=== PATIENT | male | born 1985 | race Caucasian/White ===

== ENCOUNTER 2020-02-01 20:46 | Observation (INO) | payer OTHER ==
[2020-02-01] MEDS ORDERED: DIPH,PERTUS(ACELL)TETVAC-LF 0.5 ML VIAL IM ONE (21:02)
[2020-02-01] MEDS ORDERED: HYDROmorphone 0.5 MG/0.5 ML SYRINGE IVP STA (21:02)
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
--- NOTE | 2020-02-01 21:48 | XR ---
EXAMINATION TYPE: XR shoulder limited LT DATE OF EXAM: 02/01/2020 COMPARISON: NONE HISTORY: Shoulder pain TECHNIQUE: 2 views FINDINGS: I see no fracture nor dislocation. Glenohumeral joint is intact. There are no pathologic ca lcifications. IMPRESSION: Negative left shoulder exam.
[2020-02-01 21:51] LABS: Basophils # (A) 0.2 k/uL (0-0.2); Basophils % (A) 1 %; Eosinophils # (A) 0.9 k/uL (0-0.7); Eosinophils % (A) 6 %; HCT 49.1 % (39.0-53.0); Lymphocytes % (A) 23 %; MCH 32.3 pg (25.0-35.0); MCHC 32.6 g/dL (31.0-37.0); Monocytes # (A) 0.6 k/uL (0-1.0); Monocytes % (A) 4 %; Neutrophils # (A) 8.5 k/uL (1.3-7.7); Neutrophils % (A) 64 %; Platelet Count 288 k/uL (150-450); RBC 4.96 m/uL (4.30-5.90); RDW 12.2 % (11.5-15.5); WBC 13.3 k/uL (3.8-10.6)
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
[2020-02-01 22:10] LABS: INR 0.9 (<1.2); Partial Thromboplastin Time 24.2 sec (22.0-30.0); Prothrombin Time 9.4 sec (9.0-12.0)
[2020-02-01 22:11] LABS: ALT 79 U/L (4-49); AST 38 U/L (17-59); African American GFR (CKD) >90 (>60 ml/min/1.73 sqM); Albumin 5.1 g/dL (3.5-5.0); Alkaline Phosphatase 75 U/L (38-126); Anion Gap 12 mmol/L; Blood Urea Nitrogen 14 mg/dL (9-20); Calcium 9.7 mg/dL (8.4-10.2); Carbon Dioxide 20 mmol/L (22-30); Chloride 111 mmol/L (98-107); Glucose 109 mg/dL (74-99); Non-African American GFR(CKD) >90 (>60 ml/min/1.73 sqM); Potassium 4.7 mmol/L (3.5-5.1); Sodium 143 mmol/L (137-145); Total Bilirubin 0.2 mg/dL (0.2-1.3); Total Protein 8.6 g/dL (6.3-8.2)
[2020-02-01 22:16] LABS: Alcohol 242 mg/dL
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
[2020-02-01] MEDS ORDERED: NALOXONE 0.4 MG/ML 1 ML VIAL IV PRN (22:39)
[2020-02-01] MEDS ORDERED: traMADol 50 MG TAB PO PRN (22:39)
[2020-02-01] MEDS ORDERED: HYDROmorphone 0.5 MG/0.5 ML SYRINGE IVP PRN (22:39)
[2020-02-01 22:45] LABS: Appearance,Urine Clear (Clear); Bilirubin,Urine Negative (Negative); Blood,Urine Small (Negative); Color,Urine Colorless; Glucose,Urine (UA) Negative (Negative); Hyaline Casts,Urine 3 /lpf (0-2); Ketones,Urine Negative (Negative); Leukocyte Esterase,Urine Negative (Negative); Mucus,Urine Rare /hpf; Nitrite,Urine Negative (Negative); Protein,Urine Negative (Negative); RBC,Urine <1 /hpf (0-5); Specific Gravity,Urine 1.017 (1.001-1.035); Urobilinogen,Urine <2.0 mg/dL (<2.0); WBC,Urine 1 /hpf (0-5)
[2020-02-01 22:49] LABS: Amphetamine Screen,Urine Not Detected (NotDetected); Barbiturate Screen,Urine Not Detected (NotDetected); Benzodiazepines Screen,Urine Not Detected (NotDetected); Cocaine Screen,Urine Not Detected (NotDetected); Methadone Screen, Urine Not Detected (NotDetected); Opiate Screen,Urine Not Detected (NotDetected); Oxycodone Screen, Urine Not Detected (NotDetected); Phencyclidine Screen,Urine Not Detected (NotDetected); Tricyclic Antidepressant,Urine Not Detected (NotDetected); Urn Cannabinoid Scrn Detected (NotDetected)
[2020-02-01] MEDS: SODIUM CHLORIDE 0.9% 1,000 ML IV SCH (22:54)
[2020-02-02] MEDS: SODIUM CHLORIDE 0.9% 1,000 ML IV SCH (09:02)
[2020-02-02 09:20] LABS: Basophils % (A) 0 %; Eosinophils # (A) 0.5 k/uL (0-0.7); Eosinophils % (A) 3 %; HCT 48.5 % (39.0-53.0); HGB 15.6 gm/dL (13.0-17.5); Lymphocytes % (A) 18 %; MCH 32.1 pg (25.0-35.0); MCHC 32.2 g/dL (31.0-37.0); MCV 99.6 fL (80.0-100.0); Mean Platelet Volume 7.8; Monocytes # (A) 0.9 k/uL (0-1.0); Monocytes % (A) 5 %; Neutrophils # (A) 12.1 k/uL (1.3-7.7); Neutrophils % (A) 72 %; Platelet Count 286 k/uL (150-450); RBC 4.87 m/uL (4.30-5.90); RDW 12.9 % (11.5-15.5); WBC 16.8 k/uL (3.8-10.6)
[2020-02-02 09:39] LABS: ALT 66 U/L (4-49); AST 31 U/L (17-59); African American GFR (CKD) >90 (>60 ml/min/1.73 sqM); Albumin 4.8 g/dL (3.5-5.0); Alkaline Phosphatase 81 U/L (38-126); Anion Gap 7 mmol/L; Blood Urea Nitrogen 9 mg/dL (9-20); Calcium 9.7 mg/dL (8.4-10.2); Carbon Dioxide 21 mmol/L (22-30); Chloride 110 mmol/L (98-107); Glucose 114 mg/dL (74-99); Non-African American GFR(CKD) >90 (>60 ml/min/1.73 sqM); Potassium 4.7 mmol/L (3.5-5.1); Sodium 138 mmol/L (137-145); Total Bilirubin 0.8 mg/dL (0.2-1.3); Total Protein 7.9 g/dL (6.3-8.2)
[2020-02-02 10:37] VITALS: BP 143/81; PULSE 67; RESP 16; TEMP 97.7
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
== END 2020-02-02 15:16 | disposition home or self-care (01) ==
LOC: EC 20:46 → 1SOBS 22:41
PROVIDERS: ADMIT Surgery; ATTEND Surgery
DX: F10.129 Alcohol abuse with intoxication, unspecified (principal); Y90.8 Blood alcohol level of 240 mg/100 ml or more; M25.512 Pain in left shoulder; V89.2XXA Person injured in unspecified motor-vehicle accident, traffic, initial encounter; Y92.410 Unspecified street and highway as the place of occurrence of the external cause; D72.829 Elevated white blood cell count, unspecified; J98.11 Atelectasis; J45.909 Unspecified asthma, uncomplicated; F17.200 Nicotine dependence, unspecified, uncomplicated
CPT/HCPCS: 90471; 96374; 99285; 36415; 93005; 86900; 86901; 80053 ×2; 85025 ×2; 85610; 85730; 86850; 81001; 80306; 80320; 73020; 72125; 70450; 71260; 74177; 90715; G0378 ×2; J1170; Q9967

== ENCOUNTER 2020-07-17 01:45 | Emergency (ER) | payer OTHER ==
[2020-07-17] MEDS ORDERED: KETOROLAC 15 MG/ML 1 ML VIAL IVP STA (01:59)
[2020-07-17] MEDS ORDERED: ONDANSETRON 4 MG/2 ML VIAL IVP STA (01:59)
[2020-07-17] MEDS ORDERED: SODIUM CHLORIDE 0.9% 1,000 ML IV STA (01:59)
--- NOTE | 2020-07-17 02:07 | ED ---
General Adult HPI - General Chief complaint: Abdominal Pain Stated complaint: RT flank pain Time Seen by Provider: 07/17/20 01:55 Source: patient, family, RN notes reviewed Mode of arrival: ambulatory Limitations: no limitations - History of Present Illness Initial comments: 34-year-old male patient presents to the emergency room with significant other complaining of right-sided flank pain that started around midnight tonight. Family member states patient does not like to come to the hospital and is in a lot of discomfort is not willing to talk. She states that patient did have pink tinged urine yesterday and some back pain but the pain became significantly worse and patient is now unable to get comfortable. Patient is nauseated but no vomiting. Patient complains of chills but no fever. Patient denies testicular pain. Patient on his hands and knees on the cart trying to get comfortable. Patient did have a Czech spaghetti for dinner tonight states is passing gas. Family states only medical history is asthma, no history of kidney stones. -: days(s) (1) Location: back, right Radiation: flank Severity scale (1-10): 8 Quality: sharp, constant Improves with: none Associated Symptoms: nausea/vomiting (No vomiting) - Related Data Previous Rx's Medication Instructions Recorded Acetaminophen Tab [Tylenol Tab] 650 mg PO Q4H PRN #30 tablet 02/02/20 Ibuprofen [Motrin] 600 mg PO Q8HR PRN #30 tab 02/02/20 Ibuprofen [Motrin] 600 mg PO Q8HR PRN #30 tab 07/17/20 Tamsulosin [Flomax] 0.4 mg PO DAILY #7 cap 07/17/20 Allergies Allergy/AdvReac Type Severity Reaction Status Date / Time No Known Allergies Allergy Unverified 07/17/20 01:49 Review of Systems ROS Statement: Those systems with pertinent positive or pertinent negative responses have been documented in the HPI. ROS Other: All systems not noted in ROS Statement are negative. Past Medical History Past Medical History: Asthma History of Any Multi-Drug Resistant Organisms: None Reported Past Surgical History: No Surgical Hx Reported Past Anesthesia/Blood Transfusion Reactions: No Reported Reaction Past Psychological History: No Psychological Hx Reported Smoking Status: Current every day smoker Past Alcohol Use History: Heavy Past Drug Use History: Marijuana General Exam Limitations: no limitations General appearance: alert, in distress (Due to pain) Head exam: Present: atraumatic, normocephalic, normal inspection Eye exam: Present: normal appearance, PERRL, EOMI. Absent: scleral icterus, conjunctival injection, periorbital swelling ENT exam: Present: normal exam, normal oropharynx, mucous membranes moist Neck exam: Present: normal inspection, full ROM. Absent: tenderness, meningismus, lymphadenopathy, thyromegaly Respiratory exam: Present: normal lung sounds bilaterally. Absent: respiratory distress, wheezes, rales, rhonchi, stridor, chest wall tenderness, accessory muscle use, decreased breath sounds Cardiovascular Exam: Present: bradycardia GI/Abdominal exam: Present: soft, normal bowel sounds. Absent: distended, tenderness, guarding, rebound, rigid, mass, bruit, hernia Rectal exam: Present: deferred Extremities exam: Present: normal inspection, full ROM, normal capillary refill. Absent: tenderness, pedal edema, joint swelling, calf tenderness Back exam: Present: normal inspection, full ROM, tenderness, CVA tenderness (R). Absent: CVA tenderness (L), paraspinal tenderness, vertebral tenderness, rash noted Neurological exam: Present: alert, oriented X3, normal gait Psychiatric exam: Present: normal affect, normal mood Skin exam: Present: warm, dry, intact, normal color. Absent: rash, cyanosis, erythema, urticaria, pallor, mottled Course Vital Signs 07/17/20 07/17/20 01:45 03:00 Temperature 97.8 F Pulse Rate 48 L 44 L Respiratory 20 18 Rate Blood Pressure 173/73 157/89 O2 Sat by Pulse 99 100 Oximetry - Reevaluation(s) Reevaluation #1: 07/17/20 03:09 Patient states pain is down to a 5 from an 8 and has migrated from his right flank to his right groin. Appears more comfortable laying on the bed supine. Still awaiting urine sample. 07/17/20 03:18 Time: 03:09 Medical Decision Making - Medical Decision Making Patient states he is passing gas and does feel a little bit better after IV fluids and Toradol. WBC count of 16.3 with neutrophils of 8.3 and lymphocytes of 5.3. Patient's WBC count 16.8 in January 2020. Lactic acid is 1.3 . KUB x- ray shows a large amount of gas on the right, , moderate stool, no obstruction, no pneumoperitoneum. UA shows moderate amount of blood this is likely related to a kidney stone that the patient is past. Patient states feels much better and the pain is no longer in his back. patient is receptive to being discharged home on Flomax increasing fluids and following up with primary care doctor. Case discussed with Dr. Strickland. - Lab Data Result diagrams: 07/17/20 00:11 07/17/20 00:11 Lab Results 07/17/20 07/17/20 07/17/20 Range/Units 00:11 00:11 00:11 WBC 16.3 H (3.8-10.6) k/uL RBC 4.90 (4.30-5.90) m/uL Hgb 16.0 (13.0-17.5) gm/dL Hct 46.8 (39.0-53.0) % MCV 95.5 (80.0-100.0) fL MCH 32.7 (25.0-35.0) pg MCHC 34.2 (31.0-37.0) g/dL RDW 12.0 (11.5-15.5) % Plt Count 245 (150-450) k/uL MPV 7.1 Neutrophils % 51 % Lymphocytes % 32 % Monocytes % 5 % Eosinophils % 9 % Basophils % 1 % Neutrophils # 8.3 H (1.3-7.7) k/uL Lymphocytes # 5.3 H (1.0-4.8) k/uL Monocytes # 0.8 (0-1.0) k/uL Eosinophils # 1.5 H (0-0.7) k/uL Basophils # 0.1 (0-0.2) k/uL Sodium 137 (137-145) mmol/L Potassium 4.5 (3.5-5.1) mmol/L Chloride 103 (98-107) mmol/L Carbon Dioxide 26 (22-30) mmol/L Anion Gap 8 mmol/L BUN 27 H (9-20) mg/dL Creatinine 1.03 (0.66-1.25) mg/dL Est GFR (CKD-EPI)AfAm >90 (>60 ml/min/1.73 sqM) Est GFR (CKD-EPI)NonAf >90 (>60 ml/min/1.73 sqM) Glucose 130 H (74-99) mg/dL Plasma Lactic Acid Ayan 1.3 (0.7-2.0) mmol/L Calcium 9.4 (8.4-10.2) mg/dL Total Bilirubin 0.1 L (0.2-1.3) mg/dL AST 37 (17-59) U/L ALT 33 (4-49) U/L Alkaline Phosphatase 83 (38-126) U/L Total Protein 6.9 (6.3-8.2) g/dL Albumin 4.3 (3.5-5.0) g/dL Amylase 82 (30-110) U/L Lipase 107 (23-300) U/L Urine Color Urine Appearance (Clear) Urine pH (5.0-8.0) Ur Specific Kimberly (1.001-1.035) Urine Protein (Negative) Urine Glucose (UA) (Negative) Urine Ketones (Negative) Urine Blood (Negative) Urine Nitrite (Negative) Urine Bilirubin (Negative) Urine Urobilinogen (<2.0) mg/dL Ur Leukocyte Esterase (Negative) Urine RBC (0-5) /hpf Urine WBC (0-5) /hpf Amorphous Sediment (None) /hpf 07/17/20 Range/Units 02:25 WBC (3.8-10.6) k/uL RBC (4.30-5.90) m/uL Hgb (13.0-17.5) gm/dL Hct (39.0-53.0) % MCV (80.0-100.0) fL MCH (25.0-35.0) pg MCHC (31.0-37.0) g/dL RDW (11.5-15.5) % Plt Count (150-450) k/uL MPV Neutrophils % % Lymphocytes % % Monocytes % % Eosinophils % % Basophils % % Neutrophils # (1.3-7.7) k/uL Lymphocytes # (1.0-4.8) k/uL Monocytes # (0-1.0) k/uL Eosinophils # (0-0.7) k/uL Basophils # (0-0.2) k/uL Sodium (137-145) mmol/L Potassium (3.5-5.1) mmol/L Chloride (98-107) mmol/L Carbon Dioxide (22-30) mmol/L Anion Gap mmol/L BUN (9-20) mg/dL Creatinine (0.66-1.25) mg/dL Est GFR (CKD-EPI)AfAm (>60 ml/min/1.73 sqM) Est GFR (CKD-EPI)NonAf (>60 ml/min/1.73 sqM) Glucose (74-99) mg/dL Plasma Lactic Acid Ayan (0.7-2.0) mmol/L Calcium (8.4-10.2) mg/dL Total Bilirubin (0.2-1.3) mg/dL AST (17-59) U/L ALT (4-49) U/L Alkaline Phosphatase (38-126) U/L Total Protein (6.3-8.2) g/dL Albumin (3.5-5.0) g/dL Amylase (30-110) U/L Lipase (23-300) U/L Urine Color Yellow Urine Appearance Cloudy (Clear) Urine pH 6.5 (5.0-8.0) Ur Specific Kimberly 1.026 (1.001-1.035) Urine Protein Trace H (Negative) Urine Glucose (UA) Negative (Negative) Urine Ketones Negative (Negative) Urine Blood Moderate H (Negative) Urine Nitrite Negative (Negative) Urine Bilirubin Negative (Negative) Urine Urobilinogen 2.0 (<2.0) mg/dL Ur Leukocyte Esterase Trace H (Negative) Urine RBC 103 H (0-5) /hpf Urine WBC 9 H (0-5) /hpf Amorphous Sediment Rare H (None) /hpf Disposition Clinical Impression: Abdominal pain in male, Kidney stone on right side Disposition: HOME SELF-CARE Condition: Good Instructions (If sedation given, give patient instructions): Abdominal Pain (ED), Kidney Stones (ED) Additional Instructions: Take medication as prescribed, use Motrin for pain increase your fluid intake. Return if increasing back pain, inability to urinate or fever. Follow-up with the primary care doctor in 1 week. Prescriptions: Tamsulosin [Flomax] 0.4 mg PO DAILY #7 cap Ibuprofen [Motrin] 600 mg PO Q8HR PRN #30 tab PRN Reason: Pain Is patient prescribed a controlled substance at d/c from ED?: No Referrals: None,Stated [Primary Care Provider] - 1-2 days Time of Disposition: 04:43
[2020-07-17 02:28] LABS: Basophils # (A) 0.1 k/uL (0-0.2); Basophils % (A) 1 %; Eosinophils # (A) 1.5 k/uL (0-0.7); Eosinophils % (A) 9 %; HCT 46.8 % (39.0-53.0); Lymphocytes # (A) 5.3 k/uL (1.0-4.8); Lymphocytes % (A) 32 %; MCH 32.7 pg (25.0-35.0); MCHC 34.2 g/dL (31.0-37.0); MCV 95.5 fL (80.0-100.0); Mean Platelet Volume 7.1; Monocytes # (A) 0.8 k/uL (0-1.0); Monocytes % (A) 5 %; Neutrophils # (A) 8.3 k/uL (1.3-7.7); Neutrophils % (A) 51 %; Platelet Count 245 k/uL (150-450); WBC 16.3 k/uL (3.8-10.6)
[2020-07-17 02:38] LABS: ALT 33 U/L (4-49); AST 37 U/L (17-59); African American GFR (CKD) >90 (>60 ml/min/1.73 sqM); Albumin 4.3 g/dL (3.5-5.0); Alkaline Phosphatase 83 U/L (38-126); Amylase 82 U/L (30-110); Anion Gap 8 mmol/L; Blood Urea Nitrogen 27 mg/dL (9-20); Calcium 9.4 mg/dL (8.4-10.2); Carbon Dioxide 26 mmol/L (22-30); Chloride 103 mmol/L (98-107); Glucose 130 mg/dL (74-99); Lipase 107 U/L (23-300); Non-African American GFR(CKD) >90 (>60 ml/min/1.73 sqM); Potassium 4.5 mmol/L (3.5-5.1); Sodium 137 mmol/L (137-145); Total Bilirubin 0.1 mg/dL (0.2-1.3); Total Protein 6.9 g/dL (6.3-8.2)
--- NOTE | 2020-07-17 03:00 | XR ---
EXAM: XR Abdomen, 1 View CLINICAL HISTORY: ITS.REASON XR Reason: abdominal pain TECHNIQUE: Frontal upright view of the abdomen/pelvis. COMPARISON: No relevant prior studies available. FINDINGS: Intraperitoneal space: No pneumoperitoneum. Gastrointestinal tract: Prominent small bowel gas pattern in the right abdomen without air-fluid levels. Mild gas in the ascending colon. Mild to moderate stool burden in the central pelvis and the presumed distal rectosigmoid region. Bones/joints: Unremarkable. IMPRESSION: Prominent small bowel gas pattern in the right abdomen is nonspecific and presumed enteritis. No dilation or air-fluid levels to suggest a definitive high-grade obstruction. Serial radiographic evaluation or dedicated small bowel follow-through may provide additional information. No pneumoperitoneum.
[2020-07-17 03:11] VITALS: RESP 18
[2020-07-17] MEDS ORDERED: SODIUM CHLORIDE 0.9% 500 ML 500 ML IV STA (03:15)
[2020-07-17 04:33] LABS: Amorphous Sediment,Urine Rare /hpf; Appearance,Urine Cloudy (Clear); Bilirubin,Urine Negative (Negative); Blood,Urine Moderate (Negative); Color,Urine Yellow; Glucose,Urine (UA) Negative (Negative); Ketones,Urine Negative (Negative); Leukocyte Esterase,Urine Trace (Negative); Nitrite,Urine Negative (Negative); PH, Urine 6.5 (5.0-8.0); Protein,Urine Trace (Negative); RBC,Urine 103 /hpf (0-5); Specific Gravity,Urine 1.026 (1.001-1.035); WBC,Urine 9 /hpf (0-5)
[2020-07-17 06:28] VITALS: BP 155/89; PULSE 48; TEMP 98
== END 2020-07-17 05:28 | disposition home or self-care (01) ==
LOC: EC 01:45
DX: N20.0 Calculus of kidney (principal); J45.909 Unspecified asthma, uncomplicated; F17.200 Nicotine dependence, unspecified, uncomplicated; F12.90 Cannabis use, unspecified, uncomplicated
CPT/HCPCS: 36415; 80053; 82150; 83605; 83690; 85025; 81001; 74018; 99284; 96374; 96375; 96361 ×2; J2405; J1885